=== PATIENT | male | born 1950 | race Caucasian/White ===

== ENCOUNTER 2016-05-22 16:58 | Emergency (ER) | payer MEDICARE, OTHER ==
[~2016-05-22] VITALS: Ht 180.3 cm; Wt 99.0 kg
[~2016-05-22 16:58] MED LIST: ASPI325T PO; AUGM875T PO; B COTAB3 PO; GLUC500C3 PO
[2016-05-22 17:00] VITALS: BP 158/90; PULSE 59; RESP 16; TEMP 98.2; O2SAT 98
[2016-05-22] MEDS ORDERED: SODIUM CHLORIDE 0.9% FLUSH 5 ML FLUSH IVF PRN (17:30)
--- NOTE | 2016-05-22 17:49 | RADHPO ---
EXAM DATE/TIME: 05/22/2016 17:34 [facility] COMPARISON: No previous studies available for comparison. INDICATIONS : Chest with lower extremity pain, no recent trauma MEDICAL HISTORY : None. SURGICAL HISTORY : None. ENCOUNTER: Initial ACUITY: 1 day PAIN SCORE: 6/10 LOCATION: Bilateral chest lower legs FINDINGS: A single view of the chest demonstrates the lungs to be symmetrically aerated without evidence of mas s, infiltrate or effusion. The cardiomediastinal contours are unremarkable. Osseous structures are intact with scoliosis of the mid to lower thoracic spine to the right.. CONCLUSION: No acute disease. Brian Marin MD on May 22, 2016 at 17:47 Board Certified Radiologist. This report was verified electronically.
[2016-05-22 17:50] VITALS: RESP 16; O2SAT 99
[2016-05-22 17:55] VITALS: BP 152/87
[2016-05-22 18:03] LABS: HEMATOCRIT 44.4 % (39.0-51.0); MEAN CELL VOLUME 92.7 FL (80.0-100.0); MEAN CORPUSCULAR HGB CONC 33.5 % (32.0-36.0); PLATELET COUNT 158 TH/MM3 (150-450); RED BLOOD COUNT 4.79 MIL/MM3 (4.50-5.90); RED CELL DISTRIBUTION WIDTH 13.3 % (11.6-17.2); WHITE BLOOD COUNT 10.5 TH/MM3 (4.0-11.0)
[2016-05-22 18:04] LABS: HEMO FLAGS AUTO DIFF
[2016-05-22 18:10] LABS: CHLORIDE 105 MEQ/L (98-107); SODIUM (NA) 141 MEQ/L (136-145)
[2016-05-22 18:14] LABS: ANION GAP 7 MEQ/L (5-15); BICARBONATE 28.6 MEQ/L (21.0-32.0); BLOOD UREA NITROGEN 14 MG/DL (7-18)
[2016-05-22 18:16] LABS: APTT (PATIENT) 27.2 SEC (24.3-30.1); PROTHROMBIN TIME - PATIENT 11.4 SEC (9.8-11.6)
[2016-05-22 18:17] LABS: ALT (GPT) 24 U/L (12-78); AST (GOT) 22 U/L (15-37); GLOMERULAR FILTRATION RATE 92 ML/MIN (>89)
[2016-05-22 18:18] LABS: TOTAL BILIRUBIN ADULT 1.4 MG/DL (0.2-1.0)
[2016-05-22 18:20] LABS: ALKALINE PHOSPHATASE 76 U/L (45-117)
[2016-05-22 18:27] LABS: BANDS 1 % (0-6); EOSINOPHILS 1 % (0-4); NEUTROPHIL # MANUAL DIFF 7.7 TH/MM3 (1.8-7.7); PLATELET ESTIMATE SMEAR NORMAL (NORMAL); PLATELET MORPHOLOGY NORMAL (NORMAL); POLYS (SEG NEUTROPHILS) 72 % (16-70); SCAN/DIFF FINAL DIFF MANUAL; WBC DIFF SAMPLE 95
[2016-05-22] MEDS ORDERED: METH2.5T PO (18:37)
[2016-05-22] MEDS ORDERED: METH4TAB6 PO (18:40)
[2016-05-22] MEDS ORDERED: XARE15TA PO (18:47)
[2016-05-22] MEDS ORDERED: XARE20TA PO (18:47)
--- NOTE | 2016-05-22 18:52 | PD ---
HPI Chief Complaint: Edema Time Seen by Provider: 17:19 Travel History International Travel<30 days: No Contact w/Intl Traveler<30days: No Traveled to known affect area: No History of Present Illness HPI Patient's 65-year-old male presents emergency department for evaluation of a DVT to his right lower extremity. Patient states that he went to his primary care physician's office today was seen by an advanced practice provider and was sent for an ultrasound of lower extremity. Patient was called by the office and told to present to emergency department as he had a clot in his leg. Patient states the swelling is gone sounds significantly in his right lower extremity since he saw his a BP this morning. He denies any shortness of breath or chest pain at all. Patient states he has a family history of blood clots in his father was on Coumadin for a long time. He has never had any blood clots before. The patient states he was watching the 24-hour long race on his TV recently and sat in his recliner for an extended period of time. His symptoms just did start this morning however. PFSH Past Medical History Arthritis: Yes (RA) Cancer: No Diabetes: No Diminished Hearing: No Deep Vein Thrombosis: Yes (new onset 05/22/16 left leg) Hepatitis: No Hiatal Hernia: No Thyroid Disease: No Tetanus Vaccination: > 5 Years Influenza Vaccination: No Past Surgical History Genitourinary Surgery: Yes (CIRCUMCISION at age 15) Oral Surgery: Yes (T & A) Tonsillectomy: Yes (at age 7) Other Surgery: Yes (BILATERAL INGUINAL HERNIA REPAIR) Social History Alcohol Use: Yes (OCCASIONAL- mix drinks) Tobacco Use: No Substance Use: No Allergies-Medications (Allergen,Severity, Reaction): Coded Allergies: No Known Allergies (Verified , 05/22/16) Reported Meds & Prescriptions Reported Meds & Active Scripts Active Xarelto (Rivaroxaban) 20 Mg Tab 20 Mg PO DAILY 9 Days Xarelto (Rivaroxaban) 15 Mg Tab 15 Mg PO Q12HR 21 Days Reported Methylprednisolone 4 Mg Tab 4 Mg PO DAILY Methotrexate 2.5 Mg Tab 12 Mg PO Q7D Review of Systems Except as stated in HPI: all other systems reviewed are Neg Physical Exam Narrative GENERAL: Well-developed well-nourished distress. SKIN: Warm and dry. HEAD: Atraumatic. Normocephalic. EYES: Pupils equal and round. No scleral icterus. No injection or drainage. ENT: No nasal bleeding or discharge. Mucous membranes pink and moist. NECK: Trachea midline. No JVD. CARDIOVASCULAR: Regular rate and rhythm. No murmur appreciated. RESPIRATORY: No accessory muscle use. Clear to auscultation. Breath sounds equal bilaterally. GASTROINTESTINAL: Abdomen soft, non-tender, nondistended. Hepatic and splenic margins not palpable. MUSCULOSKELETAL: No obvious deformities. No clubbing. No cyanosis. There is significant nonpitting edema of his right lower extremity from the proximal femur distally. pulses motor and sensory are intact. At this time there is no color change of his lower extremity. Warm to touch and signs of adequate perfusion. NEUROLOGICAL: Awake and alert. No obvious cranial nerve deficits. Motor grossly within normal limits. Normal speech. PSYCHIATRIC: Appropriate mood and affect; insight and judgment normal. Data Data Last Documented VS Vital Signs Date Time Temp Pulse Resp B/P Pulse Ox O2 Delivery O2 Flow Rate FiO2 05/22/16 19:08 Room Air 05/22/16 17:50 67 16 98 05/22/16 17:50 2 05/22/16 17:00 98.2 158/90 Orders Electrocardiogram (05/22/16 17:19) Complete Blood Count With Diff (05/22/16 17:19) Comprehensive Metabolic Panel (05/22/16 17:19) Prothrombin Time / Inr (Pt) (05/22/16 17:19) Act Partial Throm Time (Ptt) (05/22/16 17:19) Chest, Single Ap (05/22/16 17:19) Ecg Monitoring (05/22/16 17:19) Bilateral Bp Monitoring (05/22/16 17:19) Iv Access Insert/Monitor (05/22/16 17:19) Oximetry (05/22/16 17:19) Oxygen Administration (05/22/16 17:19) Sodium Chloride 0.9% Flush (Ns Flush) (05/22/16 17:30) Rivaroxaban (Xarelto) (05/22/16 19:00) Labs Laboratory Tests Test 05/22/16 16:00 White Blood Count 10.5 TH/MM3 Red Blood Count 4.79 MIL/MM3 Hemoglobin 14.9 GM/DL Hematocrit 44.4 % Mean Corpuscular Volume 92.7 FL Mean Corpuscular Hemoglobin 31.0 PG Mean Corpuscular Hemoglobin 33.5 % Concent Red Cell Distribution Width 13.3 % Platelet Count 158 TH/MM3 Mean Platelet Volume 6.8 FL Neutrophils (%) (Auto) % Lymphocytes (%) (Auto) % Monocytes (%) (Auto) % Eosinophils (%) (Auto) % Basophils (%) (Auto) % Neutrophils # (Auto) TH/MM3 Lymphocytes # (Auto) TH/MM3 Monocytes # (Auto) TH/MM3 Eosinophils # (Auto) TH/MM3 Basophils # (Auto) TH/MM3 CBC Comment AUTO DIFF Differential Total Cells 95 Counted Neutrophils % (Manual) 72 % Band Neutrophils % 1 % Lymphocytes % 18 % Monocytes % 8 % Eosinophils % 1 % Neutrophils # (Manual) 7.7 TH/MM3 Differential Comment FINAL DIFF MANUAL Platelet Estimate NORMAL Platelet Morphology Comment NORMAL Red Cell Morphology Comment NORMAL Prothrombin Time 11.4 SEC Prothromb Time International 1.0 RATIO Ratio Activated Partial 27.2 SEC Thromboplast Time Sodium Level 141 MEQ/L Potassium Level 4.0 MEQ/L Chloride Level 105 MEQ/L Carbon Dioxide Level 28.6 MEQ/L Anion Gap 7 MEQ/L Blood Urea Nitrogen 14 MG/DL Creatinine 0.84 MG/DL Estimat Glomerular Filtration 92 ML/MIN Rate Random Glucose 96 MG/DL Calcium Level 9.0 MG/DL Total Bilirubin 1.4 MG/DL Aspartate Amino Transf 22 U/L (AST/SGOT) Alanine Aminotransferase 24 U/L (ALT/SGPT) Alkaline Phosphatase 76 U/L Total Protein 7.1 GM/DL Albumin 3.6 GM/DL MDM Medical Decision Making Medical Screen Exam Complete: Yes Emergency Medical Condition: Yes Differential Diagnosis DVT, hypercoagulablability, PE seems highly unlikely. Narrative Course Patient was roomed in the emergency department, he appears quite well jokes with the examiner and in no apparent distress. He has no signs symptoms suggest PE. I reviewed the patient's ultrasound report [facility] and does show a common femoral DVT which is occlusive. These results were discussed with Dr. Oj Fletcher who suggests the patient could be started on a novel anticoagulant such as a Xarelto and discharge. Patient labs are reassuring coags normal, platelets normal, liver and kidney functions normal. Patient's case was discussed with case management and he will be provided 30 day voucher for the relative. He was given first dose in the emergency department. After that I discussed with him he needs to follow up with his insurance company as well as Dr. Oj fletcher and his primary care physician this week to ensure ongoing therapy. I did discuss risks benefits competitions and alternatives of Xarelto including increased risk of bleeding particular from GI sources, I discussed that the benefits outweigh the risks, he verbalized understanding and he is agreeable to the course. Discussed with the patient if there is problems getting the medication in the future he should return to the emergency Department for consideration of admission and bridging to Coumadin. Diagnosis Primary Impression: DVT (deep venous thrombosis) Qualified Code: I82.411 - Acute deep vein thrombosis (DVT) of femoral vein of right lower extremity Additional Instructions: Takes [id number] mg by mouth twice daily for 21 days. After you finished the above regimen take Xarelto 20 mg by mouth once daily. Call Dr. Courtney tomorrow for an appointment. Discussed with Dr. Courtney about returning to work. Call Dr. Fontaine for an appointment. Talk to her pharmacist about the potential cost of Xarelto. If there is significant concern over the ability to afford her medicines and return to the emergency department for possible admission for bridging to Coumadin. Med/Other Pt SpecificInfo: Prescription(s) given Scripts Rivaroxaban (Xarelto)20 Mg Tab20 Mg PO DAILY 9 Days Ref 0 Prov:Sandip Greer MD 05/22/16 Rivaroxaban (Xarelto)15 Mg Tab15 Mg PO Q12HR 21 Days Ref 0 Prov:Sandip Greer MD 05/22/16 Disposition: 01 DISCHARGE HOME Condition: Stable Sandip Greer MD May 22, 2016 18:52
[2016-05-22] MEDS ORDERED: RIVAROXABAN 15 MG TAB PO ONE (19:00)
[2016-05-22 19:08] VITALS: BP 142/90; PULSE 89; RESP 16; O2SAT 95
--- NOTE | 2016-05-23 13:49 | EKG ---
Date Performed: 05/22/2016 Time Performed: 17:51:04 PTAGE: 65 years EKG: Sinus rhythm Poor R wave progression - probable normal variant Inferior T wave changes are nonspecific Borderline ECG Compared to prior tracing no significant change PREVIOUS TRACING : 04/04/2011 10.34 DOCTOR: Joan Montgomery Interpretating Date/Time 05/23/2016 13:47:30
== END 2016-05-22 19:50 | disposition home or self-care (01) ==
LOC: PHED 16:58
DX: I82.411 Acute embolism and thrombosis of right femoral vein (principal); R94.31 Abnormal electrocardiogram [ECG] [EKG]; Z87.39 Personal history of other diseases of the musculoskeletal system and connective tissue; Z86.2 Personal history of diseases of the blood and blood-forming organs and certain disorders involving the immune mechanism
CPT/HCPCS: 71010; 80053; 85007; 85027; 85610; 85730; 93005

== ENCOUNTER 2016-12-19 17:51 | Emergency (ER) | payer MEDICARE ==
[~2016-12-19] VITALS: Ht 177.8 cm; Wt 94.0 kg
[~2016-12-19 17:51] MED LIST changes: -ASPI325T PO; -AUGM875T PO; -B COTAB3 PO; -GLUC500C3 PO; +METH2.5T PO; +METH4TAB6 PO; +XARE15TA PO; +XARE20TA PO
[2016-12-19 18:06] VITALS: BP 162/82; PULSE 55; RESP 17; TEMP 98.4; O2SAT 97
--- NOTE | 2016-12-19 18:44 | PD ---
HPI Chief Complaint: Musculoskeletal Complaint Time Seen by Provider: 18:26 Travel History International Travel<30 days: No Contact w/Intl Traveler<30days: No Traveled to known affect area: No History of Present Illness HPI 66-year-old male presents emergency department for evaluation of low back pain 3 weeks. Patient reports prescribed 3 weeks ago he was lifting a heavy bag when he felt pain in the low back. Pain has been intermittent since the injury. He denies numbness or tingling in the extremities. He denies incontinence or saddle anesthesia. He reports today the pain increased after mowing the lawn therefore he came in for evaluation. [facility] Past Medical History Arthritis: Yes (RA) Cancer: No Diabetes: No Diminished Hearing: No Deep Vein Thrombosis: Yes (new onset 05/22/16 left leg) Hepatitis: No Hiatal Hernia: No Thyroid Disease: No ?: Not Past Surgical History Genitourinary Surgery: Yes (CIRCUMCISION at age 15) Oral Surgery: Yes (T & A) Tonsillectomy: Yes (at age 7) Other Surgery: Yes (BILATERAL INGUINAL HERNIA REPAIR) Social History Alcohol Use: Yes (OCCASIONAL- mix drinks) Tobacco Use: No Substance Use: No Allergies-Medications (Allergen,Severity, Reaction): Coded Allergies: No Known Allergies (Verified , 12/19/16) Reported Meds & Prescriptions Reported Meds & Active Scripts Active Xarelto (Rivaroxaban) 20 Mg Tab 20 Mg PO DAILY 9 Days Xarelto (Rivaroxaban) 15 Mg Tab 15 Mg PO Q12HR 21 Days Reported Methylprednisolone 4 Mg Tab 4 Mg PO DAILY Methotrexate 2.5 Mg Tab 12 Mg PO Q7D Review of Systems Except as stated in HPI: all other systems reviewed are Neg General / Constitutional: No: Fever Eyes: No: Visual changes HENT: No: Headaches Cardiovascular: No: Chest Pain or Discomfort Respiratory: No: Shortness of Breath Gastrointestinal: No: Abdominal Pain Genitourinary: No: Dysuria Physical Exam Narrative GENERAL: Well-nourished, well-developed patient. SKIN: Focused skin assessment warm/dry. HEAD: Normocephalic. EYES: No scleral icterus. No injection or drainage. NECK: Supple, trachea midline. No JVD or lymphadenopathy. CARDIOVASCULAR: Regular rate and rhythm without murmurs, gallops, or rubs. RESPIRATORY: Breath sounds equal bilaterally. No accessory muscle use. GASTROINTESTINAL: Abdomen soft, non-tender, nondistended. MUSCULOSKELETAL: No cyanosis, or edema. 5 out of 5 strength in lower cavities. Normal sensation. Dorsiflex and plantarflex intact. BACK: without obvious deformity. No CVA tenderness. TTP to lumbar spine. Data Data Last Documented VS Vital Signs Date Time Temp Pulse Resp B/P (MAP) Pulse Ox O2 Delivery O2 Flow Rate FiO2 12/19/16 18:06 98.4 55 17 162/82 (108) 97 Orders Orders Spine, Lumbar Comp W/Obliq (12/19/16 ) Ketorolac Inj (Toradol Inj) (12/19/16 18:45) Orphenadrine Inj (Norflex Inj) (12/19/16 18:45) MDM Medical Decision Making Medical Screen Exam Complete: Yes Emergency Medical Condition: Yes Differential Diagnosis Lumbar strain versus strain versus fracture Narrative Course 66 old male chief complaint of low back pain after lifting a heavy bag 3 weeks ago. Pain has been intermittent since. Patient reports the pain increased today after mowing the lawn. On exam patient has tenderness in the lumbar spine region. He has a normal neurologic exam. X-ray pending to rule out lumbar spine fracture. x-ray of the lumbar spine negative for acute fractures. Degenerative changes noted. Diagnostic findings discussed with patient. Patient reports symptom improvement after medications. Patient discharged home with prescription of muscle relaxers. Instructed to continue taking his Tylenol as directed. Diagnosis Primary Impression: Lumbar strain Qualified Codes: S39.012A - Strain of muscle, fascia and tendon of lower back , initial encounter Referrals: Primary Care Physician Additional Instructions: Take Tylenol as directed. Take the muscle relaxers as needed for muscle spasms and pain. Follow-up with her primary care doctor. Return to emergency department if he developed new or worsening symptoms. Scripts Methocarbamol (Robaxin) 500 Mg Tab 500 MG PO TID for Muscle Spasm, #15 TAB 0 Refills Prov: Kadie Wheat 12/19/16 Disposition: 01 DISCHARGE HOME Condition: Stable Kadie Wheat Dec 19, 2016 18:44
[2016-12-19] MEDS ORDERED: KETOROLAC TROMETHAMINE 60 MG/2 ML (IM) VIAL IM ONE (18:45)
[2016-12-19] MEDS ORDERED: ORPHENADRINE INJ 60 MG/2 ML AMP IM ONE (18:45)
--- NOTE | 2016-12-19 19:30 | RADRPT ---
EXAM DATE/TIME: 12/19/2016 19:05 [facility] COMPARISON: No previous studies available for comparison. INDICATIONS : Lower back pain post injury three weeks ago. MEDICAL HISTORY : None. SURGICAL HISTORY : None. ENCOUNTER: Initial ACUITY: 3 weeks PAIN SCORE: 8/10 LOCATION: lumbar spine. FINDINGS: There are five non-rib bearing vertebral bodies. The vertebral bodies are in normal alignment withou t evidence of subluxation or scoliosis. There are degenerative changes involving the lumbar spine. Th e pedicles are intact. Bony mineralization is normal. No fracture is identified. CONCLUSION: Primary degenerative changes. Juan Alberto Gill MD on December 19, 2016 at 19:28 Board Certified Radiologist. This report was verified electronically.
[2016-12-19] MEDS ORDERED: ROBA500T PO (20:08)
== END 2016-12-19 20:16 | disposition home or self-care (01) ==
LOC: PHEFT 17:51
DX: S39.012A Strain of muscle, fascia and tendon of lower back, initial encounter (principal); X58.XXXA Exposure to other specified factors, initial encounter; Z86.718 Personal history of other venous thrombosis and embolism
CPT/HCPCS: 72110; 96372; 99284; J1885; J2360

== ENCOUNTER 2017-09-02 18:18 | Emergency (ER) | payer OTHER, MEDICARE ==
[~2017-09-02 18:18] MED LIST changes: +ROBA500T PO
[2017-09-02 18:25] VITALS: BP 141/85; PULSE 51; RESP 16; TEMP 98.1; O2SAT 99
[2017-09-02] MEDS ORDERED: MEDR4TAB PO (18:34)
[2017-09-02] MEDS ORDERED: ASPI-183 PO (18:34)
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
[2017-09-02] MEDS ORDERED: ROBA750T PO (20:07)
[2017-09-02] MEDS ORDERED: DIAZEPAM 5 MG TAB PO ONE (20:15)
== END 2017-09-02 20:27 | disposition home or self-care (01) ==
LOC: PHEFT 18:18
DX: S16.1XXA Strain of muscle, fascia and tendon at neck level, initial encounter (principal); V89.2XXA Person injured in unspecified motor-vehicle accident, traffic, initial encounter; M06.9 Rheumatoid arthritis, unspecified; Z86.718 Personal history of other venous thrombosis and embolism
CPT/HCPCS: 72125; 99283